=== PATIENT | female | born 1970 | race Caucasian/White ===

== ENCOUNTER 2023-09-08 00:04 | Emergency (ER) | payer BC, MEDICAID, SELFPAY ==
[2023-09-08 00:10] VITALS: BP 198/86; PULSE 97; RESP 16; TEMP 36.8; O2SAT 98; BMI 29.8
--- NOTE | 2023-09-08 00:22 | ED_ITS ---
HPI - General Adult General: Chief complaint: General Medical Stated complaint: weakness, cramping, nausia Time Seen by Provider: 09/08/23 00:07 Source: patient Mode of arrival: ambulatory Limitations: no limitations History of Present Illness: 53-year-old female with a history of chronic kidney disease states that over the last 2 days she has been having some body aches along with nausea. She denies any vomiting she denies any abdominal pain. She denies any fevers. She denies any worsening proving factors. She states she has an appointment with a makeup instructor on . Associated symptoms: Reports nausea; Deny chest pain, dyspnea, headache(s), rash or vomiting Review of Systems Const: Denies: fever(s) or chills ENMT: Denies: throat pain or dental pain Card: Denies: chest pain Resp: Denies: dyspnea GI: Reports: nausea; Denies: abdominal pain, vomiting or diarrhea : Denies: dysuria Musc: Denies: neck pain or back pain Skin/Breast: Denies: rash Neuro: Denies: headache(s) Physical Exam Const: COMMON NORMALS: no acute distress, patient oriented x3 and healthy appearing HENMT: COMMON NORMALS: normocephalic and atraumatic HEAD & SCALP: normocephalic and atraumatic Neck/C-Spine: COMMON NORMALS: full ROM and supple Chest: COMMONS NORMALS: normal inspection of the chest and normal palpation of entire chest wall Resp: COMMON NORMALS: normal respiratory effort, No retractions, No use of accessory muscles and clear to auscultation bilaterally AUSCULTATION: clear to auscultation bilaterally Cardio: COMMON NORMALS: regular rate, regular rhythm and No murmurs present (Cardio) RATE: regular rate RHYTHM: regular rhythm GI: COMMON NORMALS: Normal to inspection, nondistended, normoactive bowel sounds present, Soft to palpation, non-tender and no masses PALPATION: Yes Soft to palpation Extremity: COMMON NORMALS: normal to inspection and full ROM Neuro: COMMON NORMALS: patient oriented x3, moves all extremities and no focal motor deficits Psych: COMMON NORMALS: mental status grossly normal, Normal thought process present and cooperative THOUGHT PROCESS: Normal thought process present Skin: COMMON NORMALS: no rashes or lesions noted and no wounds GENERAL SKIN EXAM: no rashes or lesions noted Course Vital Signs: Vital signs: Vital Signs Temperature 98.2 F 09/08/23 01:36 Pulse Rate 81 09/08/23 01:36 Respiratory Rate 16 09/08/23 01:36 Blood Pressure 170/78 09/08/23 01:36 Pulse Oximetry 96 09/08/23 01:36 Oxygen Delivery Me thod Room Air 09/08/23 00:10 MDM - General Adult Medical Decision Making Patient presents with chronic kidney disease she is hyponatremic she feels improved after IV fluids she is scheduled to see a makeup instructor on she is to follow-up as scheduled return if worsening she understands agrees to plan. Medical Records I reviewed the patient's medical records. Lab Data I reviewed the patient's lab results. 09/08/23 00:25 09/08/23 00:25 Laboratory Results WBC 7.88 10^3/uL (3.29-11.43) 09/08/23 00:25 RBC 2.45 10^6/uL (3.85-5.65) L 09/08/23 00:25 Hgb 7.50 g/dL (11.27-16.99) L 09/08/23 00:25 Hct 22.6 % (36-47) L 09/08/23 00:25 MCV 92.2 fl (85-98) 09/08/23 00:25 MCH 30.6 pg (27-33) 09/08/23 00:25 MCHC 33.2 g/dL (30-55) 09/08/23 00:25 RDW 12.7 % (12.1-15.1) 09/08/23 00:25 Plt Count 242 10^3/cmm (157-399) 09/08/23 00:25 MPV 7.9 fL (7.4-10.4) 09/08/23 00:25 Neut % (Auto) 72.1 % 09/08/23 00:25 Lymph % (Auto) 18.4 % 09/08/23 00:25 [place] % (Auto) 7.7 % 09/08/23 00:25 Eos % (Auto) 0.8 % 09/08/23 00:25 Baso % (Auto) 0.6 % 09/08/23 00:25 Neut # (Auto) 5.68 10^3/uL (1.8-7.7) 09/08/23 00:25 Lymph # (Auto) 1.5 10^3/uL (0.8-4.8) 09/08/23 00:25 [place] # (Auto) 0.6 10^3/uL (0.2-0.9) 09/08/23 00:25 Eos # (Auto) 0.1 10^3/uL (0.0-0.8) 09/08/23 00:25 Baso # (Auto) 0.1 10^3/uL (0.0-0.1) 09/08/23 00:25 Nucleated RBC % (auto) 0 % 09/08/23 00:25 Nucleated RBCs # 0.0 /100WBC 09/08/23 00:25 Sodium 125 mmol/L (136-145) L 09/08/23 00:25 Potassium 3.9 mmol/L (3.5-5.1) 09/08/23 00:25 Chloride 88 mmol/L (98-107) L 09/08/23 00:25 Carbon Dioxide 21 mmol/L (22-29) L 09/08/23 00:25 Anion Gap 19.9 (5-19) H 09/08/23 00:25 BUN 40 mg/dL (6-20) H 09/08/23 00:25 Creatinine 6.3 mg/dL (0.5-0.9) H* 09/08/23 00:25 GFR Calculation 7.0 mL/min (90-130) L 09/08/23 00:25 Glucose 113 mg/dL (65-115) 09/08/23 00:25 Calculated Osmolality 271 mOsm/kg (285-295) L 09/08/23 00:25 Calcium 8.9 mg/dL (8.5-10.5) 09/08/23 00:25 Total Bilirubin 0.3 mg/dL (0.15-1.2) 09/08/23 00:25 AST 18 U/L (0-32) 09/08/23 00:25 ALT 26 U/L (0-33) 09/08/23 00:25 Alkaline Phosphatase 71 U/L (35-105) 09/08/23 00:25 Total Protein 6.9 g/dL (6.6-8.7) 09/08/23 00:25 Albumin 4.2 g/dL (3.5-5.2) 09/08/23 00:25 Globulin 2.7 g/dL (1.3-4.6) 09/08/23 00:25 Lipase 22 U/L (13-60) 09/08/23 00:25 Urine Color Yellow (Yellow) 09/08/23 00:25 Urine Appearance Sl hazy (CLEAR) A 09/08/23 00:25 Urine pH 5 (5-7) 09/08/23 00:25 Ur Specific [place] 1.010 (1.005-1.030) 09/08/23 00:25 Urine Protein 3+ (Negative) H 09/08/23 00:25 Urine Glucose (UA) Norm (Normal) 09/08/23 00:25 Urine Ketones Negative (Negative) 09/08/23 00:25 Urine Blood 2+ (Negative) H 09/08/23 00:25 Urine Nitrate Negative (Negative) 09/08/23 00:25 Urine Bilirubin Neg (Negative) 09/08/23 00:25 Urine Urobilinogen Neg mg/dL (Negative) 09/08/23 00:25 Ur Leukocyte Esterase Negative (Negative) 09/08/23 00:25 Urine RBC 0-4 /hpf (0-2) H 09/08/23 00:25 Urine WBC 0-4 /hpf (0-5) H 09/08/23 00:25 Ur Squamous Epith Cells 5-10 /hpf (0-5) H 09/08/23 00:25 Ur Transition Epith Cell 5-10 /hpf 09/08/23 00:25 Amorphous Sediment Not Reportable 09/08/23 00:25 Urine Bacteria Trace /hpf (NONE) 09/08/23 00:25 No radiology studies performed this visit Discharge Plan Discharge Patient Disposition: Home Clinical Impression: Hyponatremia, Chronic kidney disease Condition: Stable Prescriptions: No Action levothyroxine 75 mcg Tablet 75 mcg PO DAILY diltiazem HCl 240 mg capsule,extended release 24hr PO hydralazine 50 mg tablet furosemide 40 mg tablet Renal Tablet 2 tab PO DAILY Liver Capsule 2 cap PO iron bisglycinate chelate 28 mg iron Capsule 25 mg PO DAILY Discharge Orders: Discharge ED (Routine); Ordered 09/08/23 Ordered By: Torrey Breaux Referrals: Rell Morales, [employer] [Primary Care Provider] - 1-3 days Discharge Diet: Advance as tolerated Discharge Activity: Resume usual activity Patient Instructions: Hyponatremia (ED) Coding Level of Care Code ED Glass Calibrator for Rose Elliott
[2023-09-08] MEDS: ondansetron 2 mg/ML SDV 2 mL 4 MG IVP (00:25)
[2023-09-08] MEDS: sodium chloride 0.9% 1,000 ML 999 ML IV (00:25)
[2023-09-08 00:30] VITALS: BP 196/81; PULSE 81; RESP 16; O2SAT 97
[2023-09-08 00:31] LABS: Basophils # 0.1 10^3/uL (0.0-0.1); Basophils % 0.6 %; Eosinophils # 0.1 10^3/uL (0.0-0.8); Eosinophils % 0.8 %; Hematocrit 22.6 % (36-47); Lymphocytes # 1.5 10^3/uL (0.8-4.8); Lymphocytes % 18.4 %; Mean Corpuscular HGB Conc 33.2 g/dL (30-55); Mean Corpuscular Hemoglobin 30.6 pg (27-33); Mean Corpuscular Volume 92.2 fl (85-98); Mean Platelet Volume 7.9 fL (7.4-10.4); Monocytes # 0.6 10^3/uL (0.2-0.9); Monocytes % 7.7 %; Neutrophils # 5.68 10^3/uL (1.8-7.7); Neutrophils % 72.1 %; Nucleated Red Blood Cells % 0 %; Platelet Count 242 10^3/cmm (157-399); Red Blood Count 2.45 10^6/uL (3.85-5.65); Red Cell Distribution Width 12.7 % (12.1-15.1); White Blood Count 7.88 10^3/uL (3.29-11.43)
[2023-09-08 00:41] LABS: Urine Appearance SL Hazy (CLEAR); Urine Color Yellow (Yellow)
[2023-09-08 00:42] LABS: Add Urine Microscopic? YES; Bilirubin Urine Neg (Negative); Blood Urine 2+ (Negative); Glucose Urine UA Norm (Normal); Ketones Urine Negative (Negative); Leukocyte Esterase Urine Negative (Negative); Nitrate Urine Negative (Negative); Protein Urine 3+ (Negative); Urobilinogen Urine Neg (Negative); pH Urine 5 (5-7)
[2023-09-08 00:43] LABS: Add Urine Culture? No; Bacteria Urine TRACE /hpf; RBC Urine 0-4 /hpf (0-2); WBC Urine 0-4 /hpf (0-5)
[2023-09-08] MEDS: hyDRALAzine 20 mg/mL INJ 1 mL 10 MG IVP (00:44)
[2023-09-08 00:50] LABS: Alanine Aminotransferase 26 U/L (0-33); Albumin Level 4.2 g/dL (3.5-5.2); Alkaline Phosphatase 71 U/L (35-105); Anion Gap 19.9 (5-19); Aspartate Amino Transferase 18 U/L (0-32); Blood Urea Nitrogen 40 mg/dL (6-20); Calcium 8.9 mg/dL (8.5-10.5); Carbon Dioxide 21 mmol/L (22-29); Chloride 88 mmol/L (98-107); Globulin 2.7 g/dL (1.3-4.6); Glucose 113 mg/dL (65-115); Lipase 22 U/L (13-60); Osmolality Calculated 271 mOsm/kg (285-295); Potassium 3.9 mmol/L (3.5-5.1); Sodium 125 mmol/L (136-145); Total Bilirubin 0.3 mg/dL (0.15-1.2); Total Protein 6.9 g/dL (6.6-8.7)
[2023-09-08 00:55] VITALS: BP 183/75; PULSE 81; RESP 16; O2SAT 96
[2023-09-08 01:16] VITALS: BP 170/78
[2023-09-08 01:36] VITALS: BP 170/78; PULSE 81; RESP 16; TEMP 36.8; O2SAT 96
== END 2023-09-08 01:39 | disposition home or self-care (01) ==
PROVIDERS: Emergency Provider Emergency Medicine; PCP Nurse Practitioner
DX: N18.9 Chronic kidney disease, unspecified (principal); E87.1 Hypo-osmolality and hyponatremia
CPT/HCPCS: 80053; 81001; 83690; 85025; 96361; 96374; 96375; 99284; J0360; J2405; J7030

== ENCOUNTER 2023-10-20 08:30 | Oncology outpatient (recurring) (ONCR) | payer BC, MEDICAID, SELFPAY ==
[2023-10-01 09:10] VITALS: BP 129/98; PULSE 108; RESP 18; TEMP 36.6; O2SAT 99
[2023-10-01 11:10] VITALS: BP 149/92; PULSE 101; RESP 18; TEMP 36.6; O2SAT 97
[2023-10-20 08:55] VITALS: BP 169/79; PULSE 88; O2SAT 99
[2023-10-20 10:29] VITALS: BP 182/73; PULSE 82; RESP 17; TEMP 36.6; O2SAT 98
== END 2023-10-22 23:59 | disposition home or self-care (01) ==
PROVIDERS: PCP Nurse Practitioner; Visit Provider Internal Medicine
DX: D50.9 Iron deficiency anemia, unspecified (principal)
CPT/HCPCS: 96365; J1756; J7050